=== PATIENT | female | born 1985 | race Two or more races ===

== ENCOUNTER 2020-02-26 15:54 | Emergency (ER) | payer OTHER ==
[~2020-02-26] VITALS: Ht 157.5 cm; Wt 72.6 kg
--- NOTE | 2020-02-26 16:08 | NUR ---
PATIENT WAS MSE BY DR JOSE IN ROOM 03A. PATIENT A & O X3.
--- NOTE | 2020-02-26 16:15 | NUR ---
PATIENT WILL TAKE SOME TYLENOL WHEN SHE GETS HOME.
--- NOTE | 2020-02-26 16:19 | NUR ---
Patient discharged to home in stable condition. Written and verbal after care instructions given. Patient verbalizes understanding of instructions. Stressed follow up or return to ER for worsening s/s.
== END 2020-02-26 16:22 | disposition home or self-care (01) ==
LOC: ER 15:57
DX: J02.0 Streptococcal pharyngitis (principal); B95.5 Unspecified streptococcus as the cause of diseases classified elsewhere
CPT/HCPCS: A4663